=== PATIENT | male | born 1995 | race Caucasian/White ===

== ENCOUNTER 2021-03-08 12:22 | Emergency (ER) | payer BC, SELFPAY ==
[2021-03-08 12:35] VITALS: BP 147/90; PULSE 78; RESP 18; TEMP 37.2; O2SAT 99; BMI 27.3
--- NOTE | 2021-03-08 13:02 | HMH.EDGENADL ---
ED Disposition Clinical Impression: Pain, dental Disposition: Home, Self-Care Condition on Discharge: Good Instructions: DI for Impacted Tooth Additional Instructions: Recommend follow-up with the walk-in dentistry clinic for possible extraction. Return to the ED for any new or worsening symptoms including swelling or redness of the face and/or fever. Referrals: Rick Garza [Primary Care Provider] - Time of Disposition: 13:06 - Critical Care Critical Care Time: No Attestation: On , the high probability of a clinically significant, sudden or life threatening deterioration of the following system(s) required my full and direct attention, intervention and personal management. The time I documented below is in addition to time spent performing reported procedures but includes the following listed in this critical care notation. Medical Decision Making - Medical Records Medical records reviewed: Yes: I reviewed the patient's medical records. - David Inquiry Pt receiving controlled substance: No Vital Signs: 03/08/21 12:35 Temperature 98.9 F Temperature Source Oral Pulse Rate [Radial] 78 Respiratory Rate 18 Blood Pressure [Right Arm] 147/90 H Blood Pressure Mean [Right Arm] 109 02 Sat by Pulse Oximetry 99 Oxygen Delivery Method Room Air Medical Decision Narrative: 26-year-old male with right lower wisdom tooth pain. No concern for infection at this time. Patient does not have an available dentist he was referred to the dentistry walk-in clinic. He was given a dental block and discharged home in good condition General Adult HPI - General Chief complaint: PAIN Stated complaint: toothache Time Seen by Provider: 03/08/21 13:02 Mode of Arrival: Ambulatory Source of Information: Patient Limitations: No Limitations Description of Symptoms (Recalled from ER Triage Doc. by RN): C/o worsening bottom right wisdom tooth pain, started about one week ago, states he has no dental insurance and just wants some relief. - History of Present Illness HPI narrative: 26-year-old male who presents with right lower molar pain started approximately 1 week ago. Patient has a wisdom tooth and states that it has been partially out for a long time but has recently started hurting. Denies fever, drainage from the tooth, redness or swelling to the face. [facility] History - Hepatitis A Screen Drug use history?: No High risk sexual behaviors?: No History of sexually transmitted infection?: No Currently employed?: No Childcare worker?: No Do you have indoor plumbing?: Yes Do you have electricity?: Yes Attestation statement:: This patient has been screened for Hepatitis A risk factors. I have reviewed the patient's past medical history: Yes ROS Obtained: Yes Systems reviewed as appropriate & no additional complaints Physical Exam - General General appearance: alert, in no apparent distress - Head Head exam: atraumatic, normocephalic - Eye Eye exam: Present: EOMI - ENT ENT exam: Present: other (Partially erupted right lower wisdom tooth no gingival fluctuance or percussion tenderness no erythema or induration or swelling over the face) - Neck Neck exam: Present: trachea midline - Chest Chest inspection: Present: symmetric chest wall rise - Respiratory Respiratory exam: Absent: respiratory distress - Cardiovascular Cardiovascular exam: Present: regular rate - Abdominal Exam Abdominal exam: Absent: distention - Extremities Exam Extremities exam: Present: full ROM - Neurological Exam Neurological exam: Present: alert, oriented X3 - Psychiatric Psychiatric exam: Present: normal affect - Skin Skin exam: Present: warm, dry Procedures - Risk/Benefits of Procedure(s) Were Explained: Yes - Nerve Block Nerve Block 1 Time out performed: Yes Local Anesthetic: bupivacaine 0.5% Amount of anesthesia used (mL): 3.5 Side: Right Intraoral Nerve Block: inferior alveolar Procedure [place]oy
[2021-03-08 13:23] VITALS: BP 147/90; PULSE 78; RESP 18; TEMP 37.2; O2SAT 99
== END 2021-03-08 13:26 | disposition home or self-care (01) ==
PROVIDERS: Emergency Provider Student in an Organized Health Care Education/Training Program; PCP Family Medicine
DX: K08.89 Other specified disorders of teeth and supporting structures (principal)
CPT/HCPCS: 64450; 99281

== ENCOUNTER 2022-02-15 13:11 | Emergency (ER) | payer OTHER, BC, SELFPAY ==
[2022-02-15 13:12] VITALS: BMI 27.3
--- NOTE | 2022-02-15 13:58 | HMH.EDGENADL ---
ED Disposition Clinical Impression: Finger laceration Disposition: Home, Self-Care Condition on Discharge: Good Prescriptions: cephALEXin [Cephalexin 500mg Tab] 500 mg PO Q6H 5 Days #20 tab Transmission Status: Pending to [facility] Referrals: Rick Garza [Primary Care Provider] - - Critical Care Critical Care Time: No Attestation: On 02/15/22, the high probability of a clinically significant, sudden or life threatening deterioration of the following system(s) required my full and direct attention, intervention and personal management. The time I documented below is in addition to time spent performing reported procedures but includes the following listed in this critical care notation. Medical Decision Making - Medical Records Medical records reviewed: Yes: I reviewed the patient's medical records. - David Inquiry Pt receiving controlled substance: No Orders (Tests/Meds): ED MEDICATIONS Discontinued Medications Generic Name Dose Route Start Last Admin Trade Name Freq PRN Reason Stop Dose Admin Tetanus/Reduced Diphtheria/Acell Pertussis 0.5 ml 02/15/22 13:37 02/15/22 13:45 Tet/Diphth/Pert-Adult 0.5ml Syringe IM 02/15/22 13:38 0.5 ml .ONCE ONE Administration Medical Decision Narrative: 27-year-old male presented with a thumb laceration. Superficial in nature laceration was glued discharged home in good condition after tetanus and will be given prophylactic antibiotics. General Adult HPI - General Stated complaint: WC 02/15 hand lac Time Seen by Provider: 02/15/22 13:40 Mode of Arrival: Ambulatory Source of Information: Patient - History of Present Illness HPI narrative: 27-year-old male cut his thumb with a icebox man. Superficial wound in nature not up-to-date on tetanus states pain is well controlled no medication prior to arrival. Occurred proximately an hour before arrival. - Related Data Previous Rx's Medication Instructions Recorded cephALEXin [Cephalexin 500mg Tab] 500 mg PO Q6H 5 Days #20 tab 02/15/22 Allergies Allergy/AdvReac Type Severity Reaction Status Date / Time No Known Allergies Allergy Verified 02/15/22 13:37 [facility] History - Hepatitis A Screen Attestation statement:: This patient has been screened for Hepatitis A risk factors. ROS Obtained: Yes Systems reviewed as appropriate & no additional complaints Physical Exam - General General appearance: alert, in no apparent distress - Head Head exam: atraumatic, normocephalic - Eye Eye exam: Present: EOMI - ENT ENT exam: Present: mucous membranes moist - Neck Neck exam: Present: trachea midline - Chest Chest inspection: Present: symmetric chest wall rise - Respiratory Respiratory exam: Absent: respiratory distress - Cardiovascular Cardiovascular exam: Present: regular rate - Abdominal Exam Abdominal exam: Present: soft. Absent: distention - Extremities Exam Extremities exam: Present: normal inspection, other (1.5 cm laceration superficial across the distal thumb no involvement of the joint nails intact) - Neurological Exam Neurological exam: Present: alert, oriented X3 - Psychiatric Psychiatric exam: Present: normal affect - Skin Skin exam: Present: warm, dry Procedures - Laceration Laceration 1 Site: finger Side (If applicable): left Description: linear Depth: simple, single layer Pre-repair: irrigated extensively Skin layer closed with: Dermabond
--- NOTE | 2022-02-15 14:12 | PC.NURSE ---
checked on pt at this time, pt sitting up on side of the bed. States no needs at this time
[2022-02-15 14:39] VITALS: BP 143/90; PULSE 70; RESP 16; TEMP 36.6; O2SAT 98
== END 2022-02-15 14:40 | disposition home or self-care (01) ==
PROVIDERS: Emergency Provider Student in an Organized Health Care Education/Training Program; PCP Family Medicine
DX: S61.012A Laceration without foreign body of left thumb without damage to nail, initial encounter (principal); W26.0XXA Contact with knife, initial encounter; Y93.89 Activity, other specified; Y92.9 Unspecified place or not applicable; Y99.0 Civilian activity done for income or pay; Z23 Encounter for immunization
CPT/HCPCS: 12001; G0168; 90471; 90715; 99283